=== PATIENT | female | born 1975 | race Caucasian/White ===

== ENCOUNTER 2024-12-23 02:07 | Emergency (ER) | payer OTHER, SELFPAY ==
--- NOTE | ~2024-12-23 | CT_ITS ---
EXAM/PROCEDURE: CT facial bones w con HISTORY: left facial swelling COMPARISON: None available. TECHNIQUE: IV contrast enhanced facial bone CT FINDINGS: Moderately severe soft tissue swelling in the left periorbital preseptal soft tissues with no post septal infiltration into the intraconal or extraconal soft tissues. The globes appear symmetric and within normal limits. No drainable fluid collection or suspicious radiopaque foreign body seen. Mild right maxillary sinus mucoperiosteal thickening. The bones appear intact. Scattered nonpathologic sized lymph nodes seen throughout the field of view. The remainder of the facial structures and visualized intracranial contents are unremarkable. IMPRESSION: Inflammatory/infiltrative changes consistent with advanced left-sided periorbital cellulitis. No abscess; post septal/retro-orbital structures and globes appear normal. Reviewed, dictated and finalized at location A. [facility] IMPRESSION: Inflammatory/infiltrative changes consistent with advanced left-sided periorbit al cellulitis. No abscess; post septal/retro-orbital structures and globes appe ar normal.
[2024-12-23 02:12] VITALS: BP 182/99; PULSE 72; RESP 18; TEMP 36.4; O2SAT 100
--- OUTSIDE RECORDS SUMMARY | 2024-12-23 02:12 | XMS_ITS | Clinical Summary ---
Author Organization [facility] Address [address] [place] [address] Care Team Providers Care Belt Changer Name Role Phone Dharmesh Chung MD Primary Care Provider [phone] Source Comments [facility],non-[facility] Affiliates and Associated Physician Practices is amultiple site organization consisting of ambulatory clinics and hospital sitesin [place], [place], [place] and [place]. This disclosure is being madepursuant to the Care Everywhere program and may not contain all information available regarding this patient. Last updated 17.[facility] [employer] Allergies Active Allergy Reactions Criticality Noted Date Comments Amoxicillin GI Discomfort 04/06/2016 Medications * Be aware that medications may not be up to date on this document. Alwaysverify current medications with the patient. 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 Gender Identity Not on file Sexual Orientation Not on file Last Filed Vital Signs Vital Sign Reading Time Taken Comments Blood Pressure 114/68 11/30/2016 5:29 PM CDT Pulse 71 11/30/2016 5:29 PM CDT Temperature 36.7 C (98.1 F) 11/30/2016 5:29 PM CDT Respiratory Rate 16 11/30/2016 5:29 PM CDT Oxygen Saturation 98% 11/30/2016 5:29 PM CDT Inhaled Oxygen Concentration - - Weight 59 kg (130 lb) 11/30/2016 5:29 PM CDT Height 167.6 cm (5' 6) 11/30/2016 5:29 PM CDT Body Mass Index 20.98 11/30/2016 5:29 PM CDT Plan of Treatment Health Maintenance Due Date Last Done Comments COLOGUARD (AGES 45-75) - COL ON CA SCREENING 1975 COLON MONITORING 1975 COLONOSCOPY - COLON CA SCREENING 1975 CT COLONOGRAPHY - COLON CA SCREENING 1975 Colorectal Cancer Screening 1975 FIT - COLON CA SCREENING 1975 FLEX SIG - COLON CA SCREENING 1975 LIPID TESTING 1975 MAMMOGRAM 1975 HIV SCREENING 07/19/1990 HEPATITIS C SCREENING 07/15/1993 DTAP/TDAP/TD VACCINES (1 - Tdap) 07/19/1994 HEPATITIS B VACCINE (1 of 3 - 19+ 3-dose series) 07/19/1994 DEPRESSION SCREENING 02/07/2024 COVID-19 VACCINE (1 - 2023-2 5 season) 2024 INFLUENZA VACCINE (#1) 2024 ZOSTER VACCINE (1 of 2) 07/19/2025 HIB VACCINE Aged Out No longer eligi ble based on patient's age to complete this topic HPV VACCINE Aged Out No longer eligi ble based on patient's age to complete this topic MENINGOCOCCAL (Group B) VACC INE SHARED DECISION-MAKING Aged Out No longer eligibl e based on patient's age to complete this topic MENINGOCOCCAL GROUPS A/C/Y/W VACCINE Aged Out No longer eligible b ased on patient's age to complete this topic Insurance Care Teams Belt Changer Relationship Specialty Start Date End Date Dharmesh Chung MD [facility] [address] Gonzalo MACIEL [address] [place] [id number] PCP - General Internal Medicine 04/06/16
[2024-12-23 07:47] VITALS: BP 151/94; PULSE 74; RESP 15; O2SAT 99
--- NOTE | 2024-12-23 07:59 | ED.GENADULT ---
HPI - General Adult General Chief complaint: Skin/Abscess/Foreign Body Stated complaint: L facial swelling Time Seen by Provider: 12/23/24 06:59 History of Present Illness HPI narrative: 49-year-old female present to the emergency department for evaluation for left-sided facial swelling. Patient states that the swelling started few days ago and did worsen yesterday. Patient reports he did have a pimple that she manipulated and had worsening swelling. Patient reports she has been doing a warm compress on and felt that the swelling have worsened. Patient does have prior history of similar infection and had been on clindamycin. Patient denies any eye pain but does have swelling around the left eye. Related Data Home Medications ?Medication ?Instructions ?Recorded ?Confirmed ?Last Taken ?Type calcium 500 mg (as tablet PO 05/23/23 05/23/23 Unknown History carbonate)-vitamin D3 200 unit-vit K2 90 mcg tablet lactobacillus combination no.4 3 3,000 mmu cells PO DAILY 05/23/23 05/23/23 Unknown History billion cell capsule (Probiotic) semaglutide (weight loss) 0.5 0.5 mg subcut WEEKLY 05/23/23 05/23/23 Unknown History mg/0.5 mL subcutaneous pen injector spironolactone 25 mg tablet 25 mg PO DAILY 05/23/23 05/23/23 Unknown History Allergies Allergy/AdvReac Type Severity Reaction Status Date / Time amoxicillin AdvReac Intermediate Rash Verified 12/23/24 02:15 Review of Systems Review of Systems: All systems reviewed & are unremarkable except as noted in HPI and below PMFSH Past Medical History Medical History (Updated 12/23/24 @ 11:10 by Chuck Cadena MD) Hormone imbalance Lateral epicondylitis of right elbow Fractured nose Surgical History Surgical History History of total cystectomy History of bunionectomy Family History Family History Father Tobacco abuse Mother Autoimmune disease Thyroid activity decreased Sibling No problems noted. Social History Social History Smoking status: Never smoker Second hand tobacco smoke exposure: Yes Alcohol intake: current Substance use: current Substance use type: marijuana Do You Feel Safe in your Home?: Yes Lack of Transportation: No Lack of Food: Never True Current Housing: I Have Housing Concerned About Future Housing: No Difficulty Paying Gas/Electric Bills: No Difficulty Paying for Meds: No Currently Unemployed: No Education: Bachelor's Degree Difficulty w/ Childcare or Family Care: No Living arrangements: with family Occupation/Education: occupation Additional occupation/education comments: Sales Gender identity (if verbalized by the patient): Female Exam Narrative: APPEARANCE: Well appearing, no pain, no distress, well-nourished. HEAD: normocephalic, atraumatic. EYES: PERRLA/EOMI, conjunctivae clear. No pain with range of motion of NOSE: Normal no drainage EARS:TMS clear with good light reflex. THROAT: Pharynx clear, no exudate. NECK: Supple. No adenopathy, no masses. RESPIRATORY: Airway patent, respirations nonlabored. Clear to auscultation bilaterally, no rales, rhonchi, wheezing. CARDIOVASCULAR: Regular rate and rhythm without murmurs rubs or gallops. ABDOMINAL: Soft, nontender, nondistended, normal bowel sounds MUSCULOSKELETAL: Moves all extremities. Strength/ROM intact, No edema, No calf tenderness. NEURO: Alert. Cranial nerves II through XII intact. Good gait. Good coordination SKIN: Left-sided facial swelling involving the forehead and left lateral congregation. Course Vital Signs Vital signs: Vital Signs Temperature 97.5 F L 12/23/24 02:12 Pulse Rate 72 12/23/24 02:12 Respiratory Rate 18 12/23/24 02:12 Blood Pressure 182/99 H 12/23/24 02:12 Pulse Oximetry 100 12/23/24 02:12 Oxygen Delivery Room Air 12/23/24 02:12 Temperature 97.5 F L 12/23/24 02:12 Pulse Rate 80 12/23/24 11:22 Respiratory Rate 12 12/23/24 11:22 Blood Pressure 116/72 12/23/24 11:22 Pulse Oximetry 100 12/23/24 11:22 Oxygen Delivery Room Air 12/23/24 02:12 Medical Decision Making [facility] Narrative Medical decision making narrative: 49-year-old female presents emergency department for evaluation for left facial swelling. Patient is afebrile but does have a leukocytosis of 10.6 stable hemoglobin of 14.7. Patient has no acute abnormalities on her CMP CT scan shows Inflammatory/infiltrative changes consistent with advanced left-sided periorbital cellulitis. No abscess; post septal/retro-orbital structures and globes appear normal. Patient was treated with a dose of IV clindamycin. Patient will be switched to p.o. clindamycin for home. Patient was updated the results of the workup and plan for close follow-up with primary care physician. All questions were addressed patient was well-appearing at time of discharge. Differential Diagnosis Differential Diagnosis: Cellulitis, periorbital cellulitis, orbital cellulitis, facial abscess Vital Signs Vital Signs: Vital Signs Temperature 97.5 F L 12/23/24 02:12 Pulse Rate 72 12/23/24 02:12 Respiratory Rate 18 12/23/24 02:12 Blood Pressure 182/99 H 12/23/24 02:12 Pulse Oximetry 100 12/23/24 02:12 Oxygen Delivery Room Air 12/23/24 02:12 Temperature 97.5 F L 12/23/24 02:12 Pulse Rate 80 12/23/24 11:22 Respiratory Rate 12 12/23/24 11:22 Blood Pressure 116/72 12/23/24 11:22 Pulse Oximetry 100 12/23/24 11:22 Oxygen Delivery Room Air 12/23/24 02:12 Lab Data Lab results reviewed: Yes I reviewed the patient's lab results. 12/23/24 08:30 12/23/24 09:35 Labs: Lab Results 12/23/24 12/23/24 Range/Units 08:30 09:35 WBC 10.6 H (4.5-10.0) K/mm3 RBC 4.81 (4.2-5.4) M/mm3 Hgb 14.7 (12.0-15.0) g/dL Hct 43.1 (37.0-47.0) % MCV 89.6 (80-100) fl MCH 30.6 (26-34) pg MCHC 34.1 (32-36) g/dl RDW 13.2 (11.5-14.5) % Plt Count 300 (150-375) k/mm3 MPV 9.9 (7.4-10.4) fl Immature Gran % (Auto) 0.4 (0-0.5) % Neut % (Auto) 78.6 H (45.5-73.1) % Lymph % (Auto) 13.5 L (18.3-44.2) % [place] % (Auto) 6.4 (2.6-8.5) % Eos % (Auto) 0.7 (0-4.4) % Baso % (Auto) 0.4 (0.2-1.2) % Lymph # (Auto) 1.43 (0.9-3.2) K/mm3 [place] # (Auto) 0.7 H (0.1-0.6) K/mm3 Eos # (Auto) 0.1 (0-0.3) K/mm3 Baso # (Auto) 0.0 (0.0-0.1) K/mm3 Abs Immat Gran (auto) 0.04 H (0.00-0.031) K/mm3 Absolute Neuts (auto) 8.3 H (1.3-6.7) K/mm3 Absolute Nucleated RBC 0.000 (0.0-0.012) K/mm3 Nucleated RBC % 0.0 (0.0-0.2) % Sodium 138 (137-145) mmol/L Potassium 4.1 (3.4-5.0) mmol/L Chloride 104 (98-107) mmol/L Carbon Dioxide 26 (22-30) mmol/L Anion Gap 8 (4-12) mmol/L BUN 9 (7-17) mg/dL Creatinine 0.67 L 0.80 (0.7-1.0) mg/dL Estim Creat Clear Calc 82 69 ml/min Estimated GFR > 60 > 60 (59 - ) Glucose 104 (65-110) mg/dL Calcium 9.2 (8.4-10.2) mg/dL Total Bilirubin 0.7 (0.2-1.3) mg/dL AST 24 (14-36) U/L ALT 22 (6-35) U/L Alkaline Phosphatase 65 (38-126) U/L Total Protein 8.1 (6.3-8.2) g/dL Albumin 4.5 (3.5-5.1) g/dL Imaging Data Radiologist's impression: Impressions Face CT 12/23/24 08:43 IMPRESSION: Inflammatory/infiltrative changes consistent with advanced left-sided periorbital cellulitis. No abscess; post septal/retro-orbital structures and globes appear normal. Discharge Plan Discharge Clinical Impression: Cellulitis, face Patient Disposition: Home Condition: Stable Instructions: Antibiotic Form, Cellulitis (ED) Additional Instructions: Antibiotic as directed until completed. Have close follow-up with your primary care physician. If you have any worsening symptoms then please call or return to the emergency department. Patient Language: Guatemalan Prescriptions: New clindamycin HCl [Cleocin HCl] 300 mg capsule 300 mg PO Q6H 7 Days Qty: 28 0RF No Action spironolactone 25 mg tablet 25 mg PO DAILY semaglutide (weight loss) 0.5 mg/0.5 mL pen injector 0.5 mg subcut WEEKLY Rx Instructions: administer weeks 5 through 8 of therapy calcium carb-vitamin D3-vit K2 500 mg calcium- 200 unit-90 mcg tablet PO Probiotic 3 billion cell capsule 3,000 mmu cells PO DAILY Rx Instructions: administer with a meal Follow-up/Referrals: Wilbert Dona MD [Primary Care Provider, Family Practice]
--- NOTE | 2024-12-23 08:06 | PC.NURSE ---
per EDP no blood cultures are needed at this time
[2024-12-23 08:42] LABS: Hematocrit 43.1 % (37.0-47.0); Hemoglobin 14.7 g/dL (12.0-15.0); Immature Granulocyte Percent A 0.4 % (0-0.5); Lymphocytes Absolute Auto 1.43 K/mm3 (0.9-3.2); Mean Corpuscular HGB Conc 34.1 g/dl (32-36); Mean Corpuscular Hemoglobin 30.6 pg (26-34); Mean Corpuscular Volume 89.6 fl (80-100); Nucleated Red Blood Cells Absolute Auto 0.000 K/mm3 (0.0-0.012); Nucleated Red Blood Cells Perc 0.0 % (0.0-0.2); Platelet Count Result 300 k/mm3 (150-375); Red Blood Count 4.81 M/mm3 (4.2-5.4); White Blood Count 10.6 K/mm3 (4.5-10.0)
[2024-12-23 08:46] LABS: Estimated CRCL calculation 69 ml/min; Estimated Glomerular Filt Rate > 60
[2024-12-23 09:04] LABS: Alanine Aminotransferase 22 U/L (6-35); Albumin Level 4.5 g/dL (3.5-5.1); Alkaline Phosphatase 65 U/L (38-126); Anion Gap 8 mmol/L (4-12); Aspartate Amino Transferase 24 U/L (14-36); Bilirubin,Total 0.7 mg/dL (0.2-1.3); Blood Urea Nitrogen 9 mg/dL (7-17); Calcium 9.2 mg/dL (8.4-10.2); Carbon Dioxide 26 mmol/L (22-30); Chloride 104 mmol/L (98-107); Estimated CRCL calculation 82 ml/min; Estimated Glomerular Filt Rate > 60; Glucose 104 mg/dL (65-110); Potassium 4.1 mmol/L (3.4-5.0); Sodium 138 mmol/L (137-145); Total Protein 8.1 g/dL (6.3-8.2)
[2024-12-23] MEDS: CLINDAMYCIN 600 MG/D5W 50 ML 600 MG/50 ML PIGGYBACK 100 MG IVPB (09:26)
[2024-12-23] MEDS: ACETAMINOPHEN 500 MG TABLET 1000 MG PO (10:18)
[2024-12-23 10:24] VITALS: BP 138/88; PULSE 76; RESP 16; O2SAT 99
[2024-12-23 11:22] VITALS: BP 116/72; PULSE 80; RESP 12; O2SAT 100
== END 2024-12-23 11:23 | disposition home or self-care (01) ==
PROVIDERS: Emergency Provider Emergency Medicine; PCP Family Medicine
DX: L03.211 Cellulitis of face (principal); Z77.22 Contact with and (suspected) exposure to environmental tobacco smoke (acute) (chronic)
CPT/HCPCS: 36415; 70487; 80053; 85025; 96365; 99284; A9270; Q9967